=== PATIENT | male | born 1930 | race Caucasian/White ===

== ENCOUNTER 2016-08-04 20:06 | Inpatient (IN) | payer MEDICARE ==
[~2016-08-04] VITALS: Ht 177.8 cm; Wt 82.5 kg
[~2016-08-04 20:06] MED LIST: ACET325T14 PO; ALBU18HF HOMEINH; AMOX1TAB64 PO; ASPI-496 PO; CEFD300C37 PO; FLUT1DIS5 IH; FURO-93 PO; GABA100C8 PO; HYDR-3144 PO; IPRA3AMP18 NEB; METH5TAB2 PO; METO-93 PO; MULT-717 PO; OMEP-110 PO; OXYC-223 PO; POTA20PA PO; PRED5TAB PO; RIVA15TA PO; SENN1TAB7 PO; TIOT18CA INH
[2016-08-04] MEDS ORDERED: SODIUM CHLORIDE FLUSH 10ML SYR IVF ONE (20:30)
[2016-08-04] MEDS ORDERED: ASPIRIN 81 MG TABLET CHEW PO ONE ×2 (20:30→21:30)
[2016-08-04] MEDS ORDERED: MAALOX/HYOSCYAMINE/LIDOCAINE 45 ML BOTTLE PO ONE (20:30)
[2016-08-04] MEDS ORDERED: MAALOX/HYOSCYAMINE/LIDOCAINE 45 ML BOTTLE ONE (20:50)
[2016-08-04] MEDS ORDERED: ASPIRIN 81 MG TABLET CHEW ONE (20:50)
[2016-08-04 21:01] LABS: BLOOD UREA NITROGEN 14 mg/dL (7-18)
[2016-08-04 21:05] LABS: IS PT STATUS REG ER OR PRE ER? YES
[2016-08-04] MEDS ORDERED: SODIUM CHLORIDE 0.9% 1,000 ML IV ONE (21:21)
[2016-08-04] MEDS ORDERED: CEFTRIAXONE PMX 1GM/50ML 50 ML IVPB ONE (21:30)
[2016-08-04] MEDS ORDERED: POTASSIUM CHLORIDE 20 MEQ TAB.ER.PRT PO ONE (21:30)
[2016-08-04] MEDS ORDERED: AZITHROMYCIN 500 MG in SODIUM CHLORIDE 0.9% 250 ML IVPB ONE (21:30)
[2016-08-04] MEDS ORDERED: ONDANSETRON 2MG/ML, 2ML ONE (22:03)
[2016-08-04] MEDS ORDERED: morphine SULFATE 10 MG/ML, 1ML IVPush PRN (22:30)
[2016-08-04] MEDS ORDERED: ACETAMINOPHEN 325 MG TABLET PO PRN (22:30)
[2016-08-04] MEDS ORDERED: ENOXAPARIN 40 MG/0.4 ML SQ SCH (22:30)
[2016-08-04] MEDS ORDERED: OXYcodone/APAP 7.5/325MG TABLET PO PRN (22:30)
[2016-08-04] MEDS ORDERED: POTASSIUM CHLORIDE 20 MEQ TAB.ER.PRT PO SCH (22:30)
[2016-08-04] MEDS ORDERED: NITROGLYCERIN 0.4 MG BOTTLE (25 TABS) SL PRN (22:30)
[2016-08-04] MEDS ORDERED: GUAIFENESIN/DM 200-20MG, 10ML UDC PO PRN (22:30)
[2016-08-04] MEDS ORDERED: ONDANSETRON 2MG/ML, 2ML IVPush ONE (22:30)
[2016-08-04] MEDS ORDERED: METHADONE 5 MG TABLET PO PRN (22:30)
[2016-08-04] MEDS ORDERED: CEFTRIAXONE PMX 1GM/50ML 50 ML ONE (22:39)
[2016-08-04] MEDS ORDERED: OMNIPAQUE 350 MG/ML, 100ML BOTTLE ONE (22:52)
[2016-08-04] MEDS: CEFTRIAXONE PMX 1GM/50ML 50 ML IV SCH (23:30)
[2016-08-04] MEDS: AZITHROMYCIN 500 MG in SODIUM CHLORIDE 0.9% 250 ML IV SCH (23:41)
[2016-08-04] MEDS: FUROSEMIDE 20 MG TABLET PO SCH (23:49)
[2016-08-04 23:51] VITALS: BP 148/61
[2016-08-05] MEDS: POTASSIUM CHLORIDE 40 MEQ in SODIUM CHLORIDE 0.9% 1,000 ML IV SCH ×2 (00:13→11:10)
[2016-08-05] MEDS: HYDROmorphone 1 MG/ML, 1ML IV PRN ×7 (00:42→14:07)
[2016-08-05] MEDS: GABAPENTIN 100 MG CAPSULE PO SCH ×4 (00:43→21:07)
[2016-08-05] MEDS: METRONIDAZOLE PMX 500MG/100ML 100 ML IV SCH ×3 (01:22→17:10)
[2016-08-05 01:42] VITALS: BP 114/58
[2016-08-05 01:52] LABS: IS PT STATUS REG ER OR PRE ER? NO
[2016-08-05] MEDS ORDERED: HYDROmorphone 1 MG/ML, 1ML IV PRN (04:11)
[2016-08-05 06:32] VITALS: BP 125/70
[2016-08-05 07:04] LABS: ASPARTATE AMINO TRANSFERASE 27 U/L (15-37); BLOOD UREA NITROGEN 13 mg/dL (7-18)
[2016-08-05 07:10] LABS: IS PT STATUS REG ER OR PRE ER? NO
[2016-08-05] MEDS: ONDANSETRON 2MG/ML, 2ML IVPush PRN (07:18)
[2016-08-05] MEDS: FUROSEMIDE 20 MG TABLET PO SCH (08:52)
[2016-08-05] MEDS: METOPROLOL SUCCINATE 50 MG TAB.ER.24H PO SCH (08:52)
[2016-08-05] MEDS: OMEPRAZOLE 20 MG CAPSULE.DR PO SCH (08:52)
[2016-08-05] MEDS: SENNA/DOCUSATE TABLET PO SCH (08:52)
[2016-08-05] MEDS: SODIUM CHLORIDE FLUSH 3ML SYRINGE IVF SCH ×2 (09:00→21:00)
[2016-08-05] MEDS ORDERED: ASPIRIN 81 MG TABLET EC PO SCH (09:00)
[2016-08-05] MEDS: CEFTRIAXONE PMX 1GM/50ML 50 ML IV SCH ×2 (11:10→21:11)
[2016-08-05 13:41] VITALS: BP 102/61
[2016-08-05] MEDS: OXYcodone/APAP 7.5/325MG TABLET PO PRN ×2 (17:09→23:51)
[2016-08-05 20:13] VITALS: BP 97/60
[2016-08-05] MEDS: METHADONE 5 MG TABLET PO SCH (21:11)
[2016-08-05] MEDS: AZITHROMYCIN 500 MG in SODIUM CHLORIDE 0.9% 250 ML IV SCH (22:24)
[2016-08-06 02:00] VITALS: BP 102/56
[2016-08-06] MEDS: METRONIDAZOLE PMX 500MG/100ML 100 ML IV SCH (02:01)
[2016-08-06 05:55] LABS: ASPARTATE AMINO TRANSFERASE 35 U/L (15-37); BLOOD UREA NITROGEN 18 mg/dL (7-18)
[2016-08-06] MEDS: OXYcodone/APAP 7.5/325MG TABLET PO PRN ×3 (06:27→18:24)
[2016-08-06 07:36] VITALS: BP 103/59
[2016-08-06] MEDS: SODIUM CHLORIDE FLUSH 3ML SYRINGE IVF SCH ×2 (09:00→20:24)
[2016-08-06] MEDS: GABAPENTIN 100 MG CAPSULE PO SCH ×3 (09:24→20:23)
[2016-08-06] MEDS: SENNA/DOCUSATE TABLET PO SCH (09:24)
[2016-08-06] MEDS: METHADONE 5 MG TABLET PO SCH ×2 (09:24→20:23)
[2016-08-06] MEDS: METOPROLOL SUCCINATE 50 MG TAB.ER.24H PO SCH (09:24)
[2016-08-06] MEDS: OMEPRAZOLE 20 MG CAPSULE.DR PO SCH (09:24)
[2016-08-06] MEDS: SODIUM CHLORIDE 0.45% 1,000 ML IV SCH ×2 (09:24→21:50)
[2016-08-06] MEDS: PIPERACILLIN/TAZO 3.375 GM in SODIUM CHLORIDE 0.9% 50 ML IV SCH ×2 (12:09→18:24)
[2016-08-06 14:48] VITALS: BP 94/57
[2016-08-06] MEDS ORDERED: LIDOCAINE 1%, 20ML ONE (16:17)
[2016-08-06] MEDS ORDERED: MIDAZOLAM 1 MG/ML, 5ML ONE (16:20)
[2016-08-06] MEDS ORDERED: FLUMAZENIL 0.1 MG/1 ML, 5ML ONE (16:21)
[2016-08-06] MEDS ORDERED: NALOXONE 1 MG/ML, 2ML ONE (16:21)
[2016-08-06] MEDS ORDERED: FENTANYL PF 100 MCG/2ML ONE (16:21)
[2016-08-06] MEDS: HYDROmorphone 1 MG/ML, 1ML IV PRN ×2 (18:44→19:55)
[2016-08-06 19:00] VITALS: BP 105/72
[2016-08-06] MEDS: AZITHROMYCIN 500 MG in SODIUM CHLORIDE 0.9% 250 ML IV SCH (22:30)
[2016-08-07] MEDS: PIPERACILLIN/TAZO 3.375 GM in SODIUM CHLORIDE 0.9% 50 ML IV SCH ×3 (02:29→18:24)
[2016-08-07] MEDS: HYDROmorphone 1 MG/ML, 1ML IV PRN ×6 (02:29→22:02)
[2016-08-07 02:31] VITALS: BP 93/52
[2016-08-07 05:50] LABS: BLOOD UREA NITROGEN 28 mg/dL (7-18)
[2016-08-07 05:54] LABS: ASPARTATE AMINO TRANSFERASE 29 U/L (15-37)
[2016-08-07 07:09] LABS: DIFF TOTAL CELLS COUNTED 100 CELL DIFF; VERIFY COUNTS? YES
[2016-08-07 07:16] VITALS: BP 101/53
[2016-08-07] MEDS: ALBUTEROL SULFATE 2.5 MG/3 ML NPPB PRN (10:09)
[2016-08-07] MEDS: SODIUM CHLORIDE 0.45% 1,000 ML IV SCH (11:10)
[2016-08-07] MEDS: METOPROLOL SUCCINATE 50 MG TAB.ER.24H PO SCH (11:31)
[2016-08-07] MEDS: GABAPENTIN 100 MG CAPSULE PO SCH ×3 (11:31→21:28)
[2016-08-07] MEDS: OXYcodone/APAP 7.5/325MG TABLET PO PRN ×2 (11:31→18:04)
[2016-08-07] MEDS: OMEPRAZOLE 20 MG CAPSULE.DR PO SCH (11:32)
[2016-08-07] MEDS: SODIUM CHLORIDE FLUSH 3ML SYRINGE IVF SCH ×2 (11:35→21:29)
[2016-08-07] MEDS: SENNA/DOCUSATE TABLET PO SCH (11:35)
[2016-08-07] MEDS: METHADONE 5 MG TABLET PO SCH ×2 (11:35→21:28)
[2016-08-07 14:35] VITALS: BP 108/57
[2016-08-07 20:25] VITALS: BP 112/67
[2016-08-07] MEDS: AZITHROMYCIN 500 MG in SODIUM CHLORIDE 0.9% 250 ML IV SCH (22:03)
[2016-08-08] MEDS: SODIUM CHLORIDE 0.45% 1,000 ML IV SCH ×2 (00:30→16:38)
[2016-08-08] MEDS: PIPERACILLIN/TAZO 3.375 GM in SODIUM CHLORIDE 0.9% 50 ML IV SCH ×3 (02:54→18:48)
[2016-08-08 03:37] VITALS: BP 112/69
[2016-08-08 05:44] LABS: ASPARTATE AMINO TRANSFERASE 28 U/L (15-37); BLOOD UREA NITROGEN 27 mg/dL (7-18)
[2016-08-08 07:08] VITALS: BP 126/74
[2016-08-08] MEDS: SODIUM CHLORIDE FLUSH 3ML SYRINGE IVF SCH ×2 (09:00→23:02)
[2016-08-08] MEDS: SENNA/DOCUSATE TABLET PO SCH (09:00)
[2016-08-08] MEDS: METHADONE 5 MG TABLET PO SCH ×2 (09:38→20:43)
[2016-08-08] MEDS: OMEPRAZOLE 20 MG CAPSULE.DR PO SCH (09:38)
[2016-08-08] MEDS: GABAPENTIN 100 MG CAPSULE PO SCH ×3 (09:38→20:43)
[2016-08-08] MEDS: METOPROLOL SUCCINATE 50 MG TAB.ER.24H PO SCH (09:38)
[2016-08-08 13:07] VITALS: BP 108/64
[2016-08-08] MEDS: HYDROmorphone 1 MG/ML, 1ML IV PRN (13:47)
[2016-08-08 19:15] VITALS: BP 116/63
[2016-08-08] MEDS: OXYcodone/APAP 7.5/325MG TABLET PO PRN (20:43)
[2016-08-08] MEDS: AZITHROMYCIN 500 MG in SODIUM CHLORIDE 0.9% 250 ML IV SCH (23:03)
[2016-08-09] MEDS: HYDROmorphone 1 MG/ML, 1ML IV PRN ×3 (01:21→22:02)
[2016-08-09] MEDS: ALBUTEROL SULFATE 2.5 MG/3 ML NPPB PRN ×2 (01:47→11:10)
[2016-08-09] MEDS: SODIUM CHLORIDE 0.45% 1,000 ML IV SCH (02:36)
[2016-08-09 02:37] VITALS: BP 119/67
[2016-08-09] MEDS: PIPERACILLIN/TAZO 3.375 GM in SODIUM CHLORIDE 0.9% 50 ML IV SCH ×3 (02:57→19:02)
[2016-08-09] MEDS: OXYcodone/APAP 7.5/325MG TABLET PO PRN ×3 (05:30→22:53)
[2016-08-09 08:25] VITALS: BP 135/77
[2016-08-09] MEDS: GABAPENTIN 100 MG CAPSULE PO SCH ×2 (08:25→21:07)
[2016-08-09] MEDS: METHADONE 5 MG TABLET PO SCH ×2 (08:25→21:07)
[2016-08-09] MEDS: OMEPRAZOLE 20 MG CAPSULE.DR PO SCH (08:25)
[2016-08-09] MEDS: METOPROLOL SUCCINATE 50 MG TAB.ER.24H PO SCH (08:26)
[2016-08-09] MEDS: SENNA/DOCUSATE TABLET PO SCH (08:26)
[2016-08-09] MEDS: SODIUM CHLORIDE FLUSH 3ML SYRINGE IVF SCH ×2 (08:27→21:00)
[2016-08-09 13:27] VITALS: BP 125/70
[2016-08-09 20:15] VITALS: BP 132/68
[2016-08-09] MEDS: VANCOMYCIN 50 MG/ML ORAL SUSP PO SCH (21:07)
[2016-08-09] MEDS: AZITHROMYCIN 500 MG in SODIUM CHLORIDE 0.9% 250 ML IV SCH (22:53)
[2016-08-10 02:00] VITALS: BP 126/73
[2016-08-10] MEDS: VANCOMYCIN 50 MG/ML ORAL SUSP PO SCH ×4 (02:04→19:41)
[2016-08-10] MEDS: PIPERACILLIN/TAZO 3.375 GM in SODIUM CHLORIDE 0.9% 50 ML IV SCH ×3 (02:09→19:32)
[2016-08-10] MEDS: HYDROmorphone 1 MG/ML, 1ML IV PRN ×4 (03:38→19:42)
[2016-08-10] MEDS: OXYcodone/APAP 7.5/325MG TABLET PO PRN ×3 (05:45→23:43)
[2016-08-10 06:03] LABS: ASPARTATE AMINO TRANSFERASE 23 U/L (15-37); BLOOD UREA NITROGEN 14 mg/dL (7-18)
[2016-08-10 07:55] VITALS: BP 137/69
[2016-08-10] MEDS: GABAPENTIN 100 MG CAPSULE PO SCH ×2 (08:33→21:28)
[2016-08-10] MEDS: OMEPRAZOLE 20 MG CAPSULE.DR PO SCH (08:33)
[2016-08-10] MEDS: SODIUM CHLORIDE FLUSH 3ML SYRINGE IVF SCH ×2 (08:33→21:00)
[2016-08-10] MEDS: METOPROLOL SUCCINATE 50 MG TAB.ER.24H PO SCH (08:33)
[2016-08-10] MEDS: METHADONE 5 MG TABLET PO SCH (08:33)
[2016-08-10] MEDS: SODIUM CHLORIDE 0.45% 1,000 ML IV SCH ×2 (08:34→21:20)
[2016-08-10] MEDS: SENNA/DOCUSATE TABLET PO SCH (08:34)
[2016-08-10 12:28] VITALS: BP 126/63
[2016-08-10 20:00] VITALS: BP 121/67
[2016-08-10] MEDS: METHADONE 10 MG TABLET PO SCH (21:28)
[2016-08-10] MEDS: AZITHROMYCIN 500 MG in SODIUM CHLORIDE 0.9% 250 ML IV SCH (23:11)
[2016-08-11] MEDS: PIPERACILLIN/TAZO 3.375 GM in SODIUM CHLORIDE 0.9% 50 ML IV SCH (02:19)
[2016-08-11] MEDS: VANCOMYCIN 50 MG/ML ORAL SUSP PO SCH ×4 (02:20→21:35)
[2016-08-11] MEDS: HYDROmorphone 1 MG/ML, 1ML IV PRN (02:20)
[2016-08-11 02:30] VITALS: BP 113/63
[2016-08-11] MEDS: OXYcodone/APAP 7.5/325MG TABLET PO PRN ×2 (05:48→16:38)
[2016-08-11 08:18] VITALS: BP 118/87
[2016-08-11] MEDS: METHADONE 10 MG TABLET PO SCH ×3 (08:26→21:35)
[2016-08-11] MEDS: OMEPRAZOLE 20 MG CAPSULE.DR PO SCH (08:26)
[2016-08-11] MEDS: GABAPENTIN 100 MG CAPSULE PO SCH ×2 (08:27→21:35)
[2016-08-11] MEDS: METOPROLOL SUCCINATE 50 MG TAB.ER.24H PO SCH (08:27)
[2016-08-11] MEDS: SENNA/DOCUSATE TABLET PO SCH (08:28)
[2016-08-11] MEDS: SODIUM CHLORIDE FLUSH 3ML SYRINGE IVF SCH ×2 (08:28→21:36)
[2016-08-11] MEDS ORDERED: VISIPAQUE 270 MG/ML, 50ML BOTTLE ONE (11:50)
[2016-08-11] MEDS: AMPICILLIN/SULBACTAM 1,500 MG in SODIUM CHLORIDE 0.9% 50 ML IV SCH ×2 (12:49→18:58)
[2016-08-11 14:59] VITALS: BP 129/68
[2016-08-11 20:00] VITALS: BP 128/67
[2016-08-12] MEDS: AMPICILLIN/SULBACTAM 1,500 MG in SODIUM CHLORIDE 0.9% 50 ML IV SCH ×4 (01:19→18:27)
[2016-08-12 02:43] VITALS: BP 125/65
[2016-08-12] MEDS: VANCOMYCIN 50 MG/ML ORAL SUSP PO SCH ×4 (02:46→19:51)
[2016-08-12 05:52] LABS: BLOOD UREA NITROGEN 18 mg/dL (7-18)
[2016-08-12 07:22] VITALS: BP 108/64
[2016-08-12] MEDS: SODIUM CHLORIDE FLUSH 3ML SYRINGE IVF SCH ×2 (09:00→20:53)
[2016-08-12] MEDS: GABAPENTIN 100 MG CAPSULE PO SCH ×2 (09:15→20:53)
[2016-08-12] MEDS: METOPROLOL SUCCINATE 50 MG TAB.ER.24H PO SCH (09:15)
[2016-08-12] MEDS: METHADONE 10 MG TABLET PO SCH ×2 (09:16→20:53)
[2016-08-12] MEDS: OXYcodone/APAP 7.5/325MG TABLET PO PRN (11:38)
[2016-08-12] MEDS: SULFAMETH./TRIMETHOPRIM DS 800MG/160MG TABLET PO SCH ×2 (11:38→20:53)
[2016-08-12 15:45] VITALS: BP 114/68
[2016-08-12 19:09] VITALS: BP 123/66
[2016-08-13] MEDS: AMPICILLIN/SULBACTAM 1,500 MG in SODIUM CHLORIDE 0.9% 50 ML IV SCH ×4 (01:23→22:48)
[2016-08-13 02:00] VITALS: BP 127/66
[2016-08-13] MEDS: VANCOMYCIN 50 MG/ML ORAL SUSP PO SCH ×4 (02:19→22:48)
[2016-08-13 06:16] LABS: ASPARTATE AMINO TRANSFERASE 35 U/L (15-37); BLOOD UREA NITROGEN 16 mg/dL (7-18)
[2016-08-13 06:40] VITALS: BP 111/67
[2016-08-13 08:00] VITALS: BP 117/85
[2016-08-13] MEDS: METHADONE 10 MG TABLET PO SCH (09:00)
[2016-08-13] MEDS: GABAPENTIN 100 MG CAPSULE PO SCH ×2 (09:00→21:10)
[2016-08-13] MEDS: SODIUM CHLORIDE FLUSH 3ML SYRINGE IVF SCH ×2 (09:00→21:11)
[2016-08-13] MEDS ORDERED: ALBUTEROL SULFATE 2.5 MG/3 ML NPPB PRN (09:30)
[2016-08-13] MEDS: SULFAMETH./TRIMETHOPRIM 5 ML in DEXTROSE 5% 250 ML IV SCH ×2 (11:03→19:27)
[2016-08-13] MEDS: METOPROLOL SUCCINATE 50 MG TAB.ER.24H PO SCH (11:03)
[2016-08-13 16:47] VITALS: BP 106/65
[2016-08-13 20:11] VITALS: BP 112/67
[2016-08-13] MEDS: METHADONE 5 MG TABLET PO SCH (21:11)
[2016-08-14] MEDS: SULFAMETH./TRIMETHOPRIM 5 ML in DEXTROSE 5% 250 ML IV SCH ×4 (02:20→22:54)
[2016-08-14 02:38] VITALS: BP 109/65
[2016-08-14] MEDS: AMPICILLIN/SULBACTAM 1,500 MG in SODIUM CHLORIDE 0.9% 50 ML IV SCH ×3 (04:35→18:02)
[2016-08-14] MEDS: VANCOMYCIN 50 MG/ML ORAL SUSP PO SCH ×4 (04:35→23:51)
[2016-08-14] MEDS: ONDANSETRON 2MG/ML, 2ML IVPush PRN (04:36)
[2016-08-14 05:41] LABS: ASPARTATE AMINO TRANSFERASE 29 U/L (15-37); BLOOD UREA NITROGEN 14 mg/dL (7-18)
[2016-08-14 08:24] VITALS: BP 122/59
[2016-08-14] MEDS: SODIUM CHLORIDE FLUSH 3ML SYRINGE IVF SCH ×2 (09:00→21:29)
[2016-08-14] MEDS: GABAPENTIN 100 MG CAPSULE PO SCH ×2 (09:22→21:00)
[2016-08-14] MEDS: METOPROLOL SUCCINATE 50 MG TAB.ER.24H PO SCH (09:22)
[2016-08-14] MEDS: METHADONE 5 MG TABLET PO SCH (09:22)
[2016-08-14 12:29] VITALS: BP 97/60
[2016-08-14 20:40] VITALS: BP 111/68
[2016-08-14] MEDS: METHADONE INTENSOL 10 MG/ML ORAL CONC PO SCH (21:00)
[2016-08-14] MEDS ORDERED: METHADONE 5 MG TABLET ONE (21:18)
[2016-08-15] MEDS: AMPICILLIN/SULBACTAM 1,500 MG in SODIUM CHLORIDE 0.9% 50 ML IV SCH ×2 (00:03→10:11)
[2016-08-15 01:33] LABS: BLOOD UREA NITROGEN 14 mg/dL (7-18)
[2016-08-15] MEDS ORDERED: FUROSEMIDE 40 MG/4 ML IV ONE (02:00)
[2016-08-15] MEDS ORDERED: FUROSEMIDE 20 MG/2 ML ONE (02:07)
[2016-08-15 02:44] VITALS: BP 128/65
[2016-08-15] MEDS: SULFAMETH./TRIMETHOPRIM 5 ML in DEXTROSE 5% 250 ML IV SCH (05:17)
[2016-08-15] MEDS: VANCOMYCIN 50 MG/ML ORAL SUSP PO SCH ×4 (05:24→22:19)
[2016-08-15 05:28] LABS: BLOOD UREA NITROGEN 15 mg/dL (7-18)
[2016-08-15 05:31] LABS: ASPARTATE AMINO TRANSFERASE 41 U/L (15-37)
[2016-08-15 05:47] LABS: DIFF TOTAL CELLS COUNTED 100 CELL DIFF
[2016-08-15 05:50] LABS: ANISOCYTOSIS 1+; POIKILOCYTOSIS 1+; VERIFY COUNTS? YES
[2016-08-15] MEDS ORDERED: METOPROLOL SUCCINATE 25 MG TAB.ER.24H PO SCH (06:00)
[2016-08-15 07:31] VITALS: BP 133/62
[2016-08-15] MEDS: SODIUM CHLORIDE FLUSH 3ML SYRINGE IVF SCH ×2 (08:07→22:18)
[2016-08-15] MEDS ORDERED: FUROSEMIDE 20 MG/2 ML IV ONE (08:30)
[2016-08-15] MEDS: GABAPENTIN 100 MG CAPSULE PO SCH ×2 (08:36→22:18)
[2016-08-15] MEDS: Enoxaparin 1 mg/kg protocol SQ SCH ×2 (08:49→11:36)
[2016-08-15] MEDS: PIPERACILLIN/TAZO 3.375 GM in SODIUM CHLORIDE 0.9% 50 ML IV SCH ×5 (09:41→22:32)
[2016-08-15] MEDS: METHADONE INTENSOL 10 MG/ML ORAL CONC PO SCH ×2 (09:41→22:18)
[2016-08-15] MEDS: ENOXAPARIN 100 MG/ML SQ SCH ×2 (09:42→22:19)
[2016-08-15] MEDS: METOPROLOL SUCCINATE 50 MG TAB.ER.24H PO SCH (09:42)
[2016-08-15] MEDS: SULFAMETH./TRIMETHOPRIM DS 800MG/160MG TABLET PO SCH (10:11)
[2016-08-15 13:35] VITALS: BP 128/71
[2016-08-15] MEDS: OXYcodone/APAP 7.5/325MG TABLET PO PRN (16:54)
[2016-08-15] MEDS ORDERED: FUROSEMIDE 40 MG/4 ML IV STA (17:59)
[2016-08-15] MEDS ORDERED: LORazepam 2 MG/ML, 1ML IVPush STA (17:59)
[2016-08-15] MEDS ORDERED: FUROSEMIDE 40 MG/4 ML ONE (18:03)
[2016-08-15 20:19] VITALS: BP 115/69
[2016-08-16 02:17] VITALS: BP 127/80
[2016-08-16 02:30] VITALS: BP 113/64
[2016-08-16] MEDS: PIPERACILLIN/TAZO 3.375 GM in SODIUM CHLORIDE 0.9% 50 ML IV SCH ×2 (04:46→11:40)
[2016-08-16] MEDS: VANCOMYCIN 50 MG/ML ORAL SUSP PO SCH ×4 (04:46→23:28)
[2016-08-16 04:53] VITALS: BP 109/63
[2016-08-16] MEDS: METOPROLOL SUCCINATE 50 MG TAB.ER.24H PO SCH (05:17)
[2016-08-16 05:22] LABS: BLOOD UREA NITROGEN 13 mg/dL (7-18)
[2016-08-16 05:26] LABS: ASPARTATE AMINO TRANSFERASE 43 U/L (15-37)
[2016-08-16 05:50] LABS: DIFF TOTAL CELLS COUNTED 100 CELL DIFF
[2016-08-16 05:55] LABS: ANISOCYTOSIS 1+; VERIFY COUNTS? YES
[2016-08-16 05:58] LABS: MONOS WITH VACUOLES 1+
[2016-08-16 07:57] VITALS: BP 110/67
[2016-08-16] MEDS: Enoxaparin 1 mg/kg protocol SQ SCH ×2 (08:30→20:30)
[2016-08-16] MEDS: LORazepam 1MG TABLET PO PRN ×2 (09:05→15:27)
[2016-08-16] MEDS: GABAPENTIN 100 MG CAPSULE PO SCH ×2 (09:05→21:30)
[2016-08-16] MEDS: ENOXAPARIN 100 MG/ML SQ SCH ×2 (09:06→21:30)
[2016-08-16] MEDS: SODIUM CHLORIDE FLUSH 3ML SYRINGE IVF SCH ×2 (09:09→21:29)
[2016-08-16] MEDS: METHADONE INTENSOL 10 MG/ML ORAL CONC PO SCH ×2 (09:14→21:30)
[2016-08-16] MEDS: OXYcodone/APAP 7.5/325MG TABLET PO PRN ×2 (09:15→15:27)
[2016-08-16 13:05] VITALS: BP 114/55
[2016-08-16] MEDS: CEFTRIAXONE 1,000 MG in SODIUM CHLORIDE 0.9% 50 ML IV SCH (17:35)
[2016-08-16 21:30] VITALS: BP 114/66
[2016-08-17] VITALS (7 sets, daily range): BP systolic 120–132; BP diastolic 64–75
[2016-08-17] MEDS: OXYcodone/APAP 7.5/325MG TABLET PO PRN ×4 (02:31→23:37)
[2016-08-17] MEDS: LORazepam 1MG TABLET PO PRN ×2 (02:31→09:26)
[2016-08-17 06:08] LABS: ASPARTATE AMINO TRANSFERASE 38 U/L (15-37); BLOOD UREA NITROGEN 13 mg/dL (7-18)
[2016-08-17] MEDS: VANCOMYCIN 50 MG/ML ORAL SUSP PO SCH ×5 (06:08→23:37)
[2016-08-17] MEDS: METOPROLOL SUCCINATE 50 MG TAB.ER.24H PO SCH (06:09)
[2016-08-17] MEDS: Enoxaparin 1 mg/kg protocol SQ SCH (08:30)
[2016-08-17] MEDS: FUROSEMIDE 40 MG TABLET PO SCH (08:35)
[2016-08-17] MEDS: GABAPENTIN 100 MG CAPSULE PO SCH ×2 (08:35→21:06)
[2016-08-17] MEDS: METHADONE INTENSOL 10 MG/ML ORAL CONC PO SCH ×2 (08:35→21:06)
[2016-08-17] MEDS: ENOXAPARIN 100 MG/ML SQ SCH (08:36)
[2016-08-17] MEDS: SODIUM CHLORIDE FLUSH 3ML SYRINGE IVF SCH ×2 (09:00→21:00)
[2016-08-17] MEDS ORDERED: FUROSEMIDE 40 MG/4 ML ONE (12:23)
[2016-08-17] MEDS ORDERED: FUROSEMIDE 40 MG/4 ML IV ONE (12:30)
[2016-08-17] MEDS ORDERED: DILTIAZEM 5 MG/ML, 5ML ONE (13:33)
[2016-08-17] MEDS ORDERED: DILTIAZEM 5 MG/ML, 5ML IVPush ONE (14:00)
[2016-08-17] MEDS ORDERED: ALBUTEROL/IPRATROPIUM 2.5MG/0.5MG, 3 ML ONE (14:01)
[2016-08-17 14:12] LABS: ABG COLLECTION SITE RIGHT RADIAL; COLLATERAL CIRCULATION TESTING NORMAL
[2016-08-17] MEDS ORDERED: LORazepam 2 MG/ML, 1ML IVPush ONE (14:30)
[2016-08-17] MEDS ORDERED: ALBUTEROL/IPRATROPIUM 2.5MG/0.5MG, 3 ML NPPB PRN (14:30)
[2016-08-17] MEDS: CEFTRIAXONE 1,000 MG in SODIUM CHLORIDE 0.9% 50 ML IV SCH (14:31)
[2016-08-17] MEDS: methylPREDNISolone SOD SUCC 125 MG/2 ML IVPush SCH ×2 (14:31→21:05)
[2016-08-17] MEDS: DILTIAZEM 125 MG in SODIUM CHLORIDE 0.9% 100 ML IV SCH (16:25)
[2016-08-17] MEDS: OXYcodone/APAP 5/325MG TABLET PO ONE ×2 (17:30→18:34)
[2016-08-17] MEDS: ALBUTEROL/IPRATROPIUM 2.5MG/0.5MG, 3 ML NPPB SCH ×2 (18:20→22:00)
[2016-08-17] MEDS: APIXABAN 5 MG TABLET PO SCH (21:06)
[2016-08-18 00:53] VITALS: BP 117/69
[2016-08-18] MEDS: methylPREDNISolone SOD SUCC 125 MG/2 ML IVPush SCH ×4 (02:45→20:48)
[2016-08-18] MEDS: LORazepam 1MG TABLET PO PRN ×2 (04:43→10:58)
[2016-08-18] MEDS: VANCOMYCIN 50 MG/ML ORAL SUSP PO SCH ×4 (04:43→23:07)
[2016-08-18 04:53] VITALS: BP 124/80
[2016-08-18] MEDS: ALBUTEROL/IPRATROPIUM 2.5MG/0.5MG, 3 ML NPPB SCH ×5 (05:24→21:40)
[2016-08-18 05:41] LABS: ABG COLLECTION SITE LEFT RADIAL; COLLATERAL CIRCULATION TESTING NORMAL
[2016-08-18] MEDS: OXYcodone/APAP 7.5/325MG TABLET PO PRN ×2 (07:00→10:58)
[2016-08-18] MEDS: FUROSEMIDE 40 MG TABLET PO SCH (09:00)
[2016-08-18 09:05] LABS: ABG COLLECTION SITE LEFT RADIAL; COLLATERAL CIRCULATION TESTING NORMAL
[2016-08-18 09:12] LABS: ASPARTATE AMINO TRANSFERASE 40 U/L (15-37); BLOOD UREA NITROGEN 16 mg/dL (7-18)
[2016-08-18] MEDS: METOPROLOL SUCCINATE 25 MG TAB.ER.24H PO SCH (09:38)
[2016-08-18] MEDS: GABAPENTIN 100 MG CAPSULE PO SCH ×2 (09:38→20:50)
[2016-08-18] MEDS: METHADONE INTENSOL 10 MG/ML ORAL CONC PO SCH ×3 (09:38→22:19)
[2016-08-18] MEDS: APIXABAN 5 MG TABLET PO SCH ×2 (09:39→20:49)
[2016-08-18] MEDS: SODIUM CHLORIDE FLUSH 3ML SYRINGE IVF SCH ×2 (09:39→21:00)
[2016-08-18] MEDS: AcetaZOLAMIDE INJ 500 MG IVPush SCH ×2 (10:58→20:49)
[2016-08-18] MEDS: CEFTRIAXONE 1,000 MG in SODIUM CHLORIDE 0.9% 50 ML IV SCH (14:43)
[2016-08-18] MEDS: DILTIAZEM 125 MG in SODIUM CHLORIDE 0.9% 100 ML IV SCH (14:44)
[2016-08-18] MEDS ORDERED: METHADONE 10 MG TABLET ONE (20:44)
[2016-08-19] MEDS: methylPREDNISolone SOD SUCC 125 MG/2 ML IVPush SCH ×4 (03:10→20:56)
[2016-08-19 04:07] VITALS: BP 125/71
[2016-08-19] MEDS: OXYcodone/APAP 7.5/325MG TABLET PO PRN (04:13)
[2016-08-19] MEDS: VANCOMYCIN 50 MG/ML ORAL SUSP PO SCH ×4 (04:14→22:44)
[2016-08-19] MEDS: METOPROLOL SUCCINATE 25 MG TAB.ER.24H PO SCH (05:03)
[2016-08-19 05:54] LABS: BLOOD UREA NITROGEN 20 mg/dL (7-18)
[2016-08-19] MEDS: ALBUTEROL/IPRATROPIUM 2.5MG/0.5MG, 3 ML NPPB SCH ×5 (06:35→22:00)
[2016-08-19] MEDS: GABAPENTIN 100 MG CAPSULE PO SCH ×2 (09:50→20:56)
[2016-08-19] MEDS: APIXABAN 5 MG TABLET PO SCH ×2 (09:50→20:55)
[2016-08-19] MEDS: METHADONE INTENSOL 10 MG/ML ORAL CONC PO SCH ×2 (09:50→20:56)
[2016-08-19] MEDS: AcetaZOLAMIDE INJ 500 MG IVPush SCH ×2 (09:51→20:56)
[2016-08-19] MEDS: SODIUM CHLORIDE FLUSH 3ML SYRINGE IVF SCH ×2 (10:03→20:57)
[2016-08-19] MEDS: CEFTRIAXONE 1,000 MG in SODIUM CHLORIDE 0.9% 50 ML IV SCH (15:11)
[2016-08-19] MEDS ORDERED: DILTIAZEM 125 MG in SODIUM CHLORIDE 0.9% 100 ML IV SCH (16:00)
[2016-08-20] MEDS: methylPREDNISolone SOD SUCC 125 MG/2 ML IVPush SCH ×3 (02:24→15:22)
[2016-08-20 04:00] VITALS: BP 117/66
[2016-08-20 05:01] LABS: BLOOD UREA NITROGEN 27 mg/dL (7-18)
[2016-08-20 05:08] LABS: ASPARTATE AMINO TRANSFERASE 61 U/L (15-37)
[2016-08-20] MEDS: VANCOMYCIN 50 MG/ML ORAL SUSP PO SCH ×3 (05:31→16:12)
[2016-08-20] MEDS: METOPROLOL SUCCINATE 25 MG TAB.ER.24H PO SCH (05:31)
[2016-08-20] MEDS: ALBUTEROL/IPRATROPIUM 2.5MG/0.5MG, 3 ML NPPB SCH ×3 (06:50→14:40)
[2016-08-20] MEDS: AcetaZOLAMIDE INJ 500 MG IVPush SCH (08:25)
[2016-08-20] MEDS ORDERED: METHADONE 10 MG TABLET ONE (08:31)
[2016-08-20] MEDS ORDERED: SODIUM CHLORIDE FLUSH 10ML SYR IVF SCH (09:00)
[2016-08-20] MEDS ORDERED: METHADONE 10 MG TABLET PO SCH (09:00)
[2016-08-20] MEDS ORDERED: CEFTRIAXONE 1,000 MG in SODIUM CHLORIDE 0.9% 100 ML IV SCH (09:00)
[2016-08-20] MEDS: GABAPENTIN 100 MG CAPSULE PO SCH (09:39)
[2016-08-20] MEDS: POTASSIUM CHLORIDE 20 MEQ TAB.ER.PRT PO SCH ×2 (09:39→16:12)
[2016-08-20] MEDS: APIXABAN 5 MG TABLET PO SCH (09:39)
[2016-08-20] MEDS: OXYcodone/APAP 7.5/325MG TABLET PO PRN ×3 (09:57→16:12)
[2016-08-20] MEDS ORDERED: SCOPOLAMINE PATCH, 1.5MG PATCH.TD72 TD SCH (10:01)
[2016-08-20] MEDS ORDERED: METO50TA82 PO (13:00)
[2016-08-20] MEDS ORDERED: PRED5TAB PO (13:00)
[2016-08-20] MEDS ORDERED: VANC1VIA3 PO (13:57)
== END 2016-08-20 14:33 | disposition hospice, home (50) | DRG 871 ==
LOC: SUATTDRO 21:52 → ED 21:53 → EDIP 22:00 → 5SO 22:59 → 4NOR 08-06 18:05 → 5SO 08-15 10:33 → CCU 08-18 06:00
PROVIDERS: ATTEND Family Medicine
PROC: 0F9430Z Drainage of Gallbladder with Drainage Device, Percutaneous Approach (ICD-10-PCS; 2016-08-06)
PROC: BF121ZZ Fluoroscopy of Gallbladder using Low Osmolar Contrast (ICD-10-PCS; 2016-08-11)
PROC: 5A09357 Assistance with Respiratory Ventilation, Less than 24 Consecutive Hours, Continuous Positive Airway Pressure (ICD-10-PCS; principal; 2016-08-19)
DX: A41.9 Sepsis, unspecified organism (principal); E43 Unspecified severe protein-calorie malnutrition; J96.20 Acute and chronic respiratory failure, unspecified whether with hypoxia or hypercapnia; I21.4 Non-ST elevation (NSTEMI) myocardial infarction; J18.9 Pneumonia, unspecified organism; K81.0 Acute cholecystitis; A04.7 Enterocolitis due to Clostridium difficile; E87.3 Alkalosis; I50.32 Chronic diastolic (congestive) heart failure; J44.0 Chronic obstructive pulmonary disease with (acute) lower respiratory infection; S36.590A Other injury of ascending [right] colon, initial encounter; D68.69 Other thrombophilia; D64.9 Anemia, unspecified; E87.6 Hypokalemia; F17.210 Nicotine dependence, cigarettes, uncomplicated; G62.9 Polyneuropathy, unspecified; G89.29 Other chronic pain; I11.0 Hypertensive heart disease with heart failure; I25.10 Atherosclerotic heart disease of native coronary artery without angina pectoris; I48.0 Paroxysmal atrial fibrillation; I35.8 Other nonrheumatic aortic valve disorders; Z68.26 Body mass index [BMI] 26.0-26.9, adult; I34.0 Nonrheumatic mitral (valve) insufficiency; I70.0 Atherosclerosis of aorta; K21.9 Gastro-esophageal reflux disease without esophagitis; M06.9 Rheumatoid arthritis, unspecified; R13.10 Dysphagia, unspecified; Z51.5 Encounter for palliative care; B96.20 Unspecified Escherichia coli [E. coli] as the cause of diseases classified elsewhere; Z96.652 Presence of left artificial knee joint; X58.XXXA Exposure to other specified factors, initial encounter; Z66 Do not resuscitate; Z79.82 Long term (current) use of aspirin; Z79.891 Long term (current) use of opiate analgesic; Z80.3 Family history of malignant neoplasm of breast; Z82.49 Family history of ischemic heart disease and other diseases of the circulatory system; Z87.11 Personal history of peptic ulcer disease; Z87.442 Personal history of urinary calculi; Z99.81 Dependence on supplemental oxygen; Y93.89 Activity, other specified; Y92.89 Other specified places as the place of occurrence of the external cause; Y99.8 Other external cause status; Z88.6 Allergy status to analgesic agent; Z88.5 Allergy status to narcotic agent; Z88.8 Allergy status to other drugs, medicaments and biological substances; Z90.49 Acquired absence of other specified parts of digestive tract
CPT/HCPCS: 36415; 36600; 47490; 47531; 71010; 71275; 74176; 75989; 76000; 76700; 80048; 80053; 80061; 82040; 82247; 82248; 82565; 82803; 82805; 83605; 83690; 83735; 83880; 84484; 84520; 85025; 85610; 87040; 87070; 87075; 87077; 87081; 87186; 87205; 87324; 93005; 93306; 94640; 94660; 96374; 99156; 99157; J0456; J0696; J1170; J1650; J1940; J2250; J2405; J2543; J3010; J3370; J3480; J3490; J7060; J7613; J7620; Q9966; Q9967; C1729; C1769; J0295; J1120; J2060; J2310; J2930; J7030; J7050